=== PATIENT | male | born 1970 | race Caucasian/White ===

== ENCOUNTER → 2017-04-18 | Outpatient (CLI) | payer BC, OTHER ==
[2015-05-16 20:25] VITALS: BP 155/90
--- NOTE | 2017-04-18 08:58 | RAD ---
Right hand radiograph 04/18/2017 at 0815 hours Indication: Right hand injury Comparison: Right hand radiograph 05/16/2015 Technique: 3 views of the right hand are provided. Findings: There is a comminuted, displaced and angulated fracture of the distal fifth metacarpal compatible with a boxer's fracture. There is apex dorsal/ulnar angulation. There is adjacent soft tissue swelling. Bone mineralization is within normal limits. Impression: Comminuted, displaced and attenuated fracture of the distal fifth metacarpal, compatible with a boxer's fracture.
== END | disposition home or self-care (01) ==
LOC: DXRADRC 08:08
PROVIDERS: ATTEND Physician Assistant
DX: S62.306A Unspecified fracture of fifth metacarpal bone, right hand, initial encounter for closed fracture (principal); W22.01XA Walked into wall, initial encounter; Y93.89 Activity, other specified; Y92.89 Other specified places as the place of occurrence of the external cause; Y99.8 Other external cause status
CPT/HCPCS: 73130

== ENCOUNTER 2021-12-02 13:36 | Emergency (ER) | payer BC, OTHER ==
[2015-05-16 20:25] VITALS: BP 155/90
[~2021-12-02] VITALS: Ht 180.3 cm; Wt 94.0 kg
[2021-12-02] MEDS ORDERED: DIPHTH,PERTUSS(ACELL),TET TOX 0.5 ML DISP.SYRIN. VAX IM ONE (14:15)
--- NOTE | 2021-12-02 14:30 | RAD ---
Study: XR HAND_RIGHT 3 VIEWS Indication: Injury of the right index finger. Comparison: 04/18/2017 Findings: No acute fracture seen to involve the index finger or rest of the hand. Congruent articular surfaces. Chronic fifth metacarpal neck deformity. Chronic irregularity at the third metacarpal head. 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 Mild scattered degenerative changes elsewhere. Impression: No acute fracture of the index finger or traumatic malalignment in the setting of reported trauma to this digit. Scattered arthrosis as well as a chronic fifth metacarpal neck deformity. Electronically signed by: GÓMEZ JUNIOR MD (12/02/2021 2:28 PM) [facility]
--- NOTE | 2021-12-02 14:56 | PHYS DOC ---
Past History Past Medical History: Seizure Past Surgical History: No Surgical History Alcohol Use: Occasionally Drug Use: None General Adult EDM: Chief Complaint: FINGER INJURY HPI: HPI: Patient is a 51-year-old male presents with right index finger laceration. Patient states that he smashed his finger in between 2 pieces of machinery. Sensation and range of motion are intact. Bleeding is controlled. Tetanus is not up-to-date. History of seizures. Review of Systems: Review of Systems: ROS At least 10 ROS systems have been reviewed and are negative except as documented in the HPI. General: Negative except as outlined in HPI above. Skin: Negative except as outlined in HPI above. HEENT: Negative except as outlined in HPI above. Neck: Negative except as outlined in HPI above. Respiratory: Negative except as outlined in HPI above.. Cardiovascular: Negative except as outlined in HPI above. Abdomen: Negative except as outlined in HPI above. : Negative except as outlined in HPI above. Back/MSK: Negative except as outlined in HPI above. Neuro: Negative except as outlined in HPI above. Psych: Negative except as outlined in HPI above. Current Medications: Current Meds: Current Medications Medications (Trade) Dose Ordered Sig/Jolynn Start Time Stop Time Status Last Admin Dose Admin Diphtheria/ Tetanus/Acell Pertussis (Boostrix) 0.5 ml ONCE ONCE 12/02/21 14:15 12/02/21 14:16 DC 12/02/21 14:15 0.5 ML Allergies: Allergies: Allergies Coded Allergies Type Severity Reaction Last Updated Verified No Known Drug Allergies 05/16/15 No Physical Exam: PE: Constitutional: Well developed, well nourished, no acute distress, non-toxic ap pearance. [] HENT: bilateral external ears normal, oropharynx moist, no oral exudates, nose normal. [] Eyes: PERRLA, conjunctiva normal, no discharge. [] Neck: Normal range of motion, no tenderness, supple, no stridor. [] Cardiovascular:Heart rate regular rhythm, no murmur [] Lungs & Thorax: Bilateral breath sounds clear to auscultation [] Abdomen: Bowel sounds normal, soft, no tenderness, no masses, no pulsatile masses. [] Skin: 5 cm, laceration, around right, index ear Back: No tenderness, no CVA tenderness. [] Extremities: Right index finger, tenderness,laceration at base of finger, ROM intact, no edema, cap refill less than 2 seconds, Neurologic: Alert and oriented X 3, normal motor function, normal sensory function, no focal deficits noted. [] Psychologic: Affect normal, judgement normal, mood normal. [] Current Patient Data: Vital Signs: Vital Signs Date Time Temp Pulse Resp B/P (MAP) Pulse Ox O2 Delivery O2 Flow Rate FiO2 12/02/21 13:43 98.2 65 18 154/107 (123) 96 Room Air EKG: EKG: [] Radiology/Procedures: Radiology/Procedures: []Study: XR HAND_RIGHT 3 VIEWS Indication: Injury of the right index finger. Comparison: 04/18/2017 Findings: No acute fracture seen to involve the index finger or rest of the hand. Congruent articular surfaces. Chronic fifth metacarpal neck deformity. Chronic irregularity at the third metacarpal head. 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 Mild scattered degenerative changes elsewhere. Impression: No acute fracture of the index finger or traumatic malalignment in the setting of reported trauma to this digit. Scattered arthrosis as well as a chronic fifth metacarpal neck deformity. Electronically signed by: GÓMEZ JUNIOR MD (12/02/2021 2:28 PM) [facility] Heart Score: C/O Chest Pain: No Risk Factors: Risk Factors: DM, Current or recent (<one month) smoker, HTN, HLP, family history of CAD, obesity. Risk Scores: Score 0 - 3: 2.5% MACE over next 6 weeks - Discharge Home Score 4 - 6: 20.3% MACE over next 6 weeks - Admit for Clinical Observation Score 7 - 10: 72.7% MACE over next 6 weeks - Early Invasive Strategies Course & Med Decision Making: Course & Med Decision Making Pertinent Labs and Imaging studies reviewed. (See chart for details) [] 51-year-old male presents with right index finger, laceration. Patient finger was smashed in between 2 pieces of machinery. Sensation and range of motion are intact. Bleeding is controlled. Work-up in ER consist of finger x- ray, tetanus. Dragon Disclaimer: Dragon Disclaimer: This electronic medical record was generated, in whole or in part, using a voice recognition dictation system. 51-year-old male presents with right, index finger laceration. Wound was irrigated. Tetanus was updated. 10 sutures placed and right, index finger. Pa tient tolerated procedure well. Wound was covered with nonadhesive dressing and gauze. Laceration Repair Lac Repair Indication: Right, 5 cm, index finger laceration Procedure: The patient was placed in the appropriate position and anesthesia around the laceration was injected. The area was then irrigated. The lace ration was closed with 50, sutures. The wound area was then dressed with gauze and nonadhesive dressing. Total repaired wound length: 5 cm Other Items: N/A The patient tolerated the procedure well Complications: N/A Departure Departure: Impression: Primary Impression: Laceration Disposition: HOME / SELF CARE / HOMELESS Condition: STABLE Referrals: DUANE BROWNING MD (PCP) Patient Instructions: Laceration Care, Child, [id number] Additional Instructions: EMERGENCY DEPARTMENT GENERAL DISCHARGE INSTRUCTIONS Thank you for coming to [facility] (ED) today and trusting us with you care. We trust that you had a positivie experience in our Emergency Department. If you wish to speak to the department management, you may call the director at [phone]. YOUR FOLLOW UP INSTRUCTIONS ARE FOLLOWS: 1. Do you have a private Doctor? If you do not have a private doctor, please ask for a resource list of physicians or clinics that may be able to assist you with follow up care. 2. The Emergency Physician has interpreted your x-rays. The X-Ray specialist will also review them. If there is a change in the findings, you will be notified in 48 hours when at all possible. 3. A lab test or culture has been done, your results will be reviewed and you will be notified if you need a change in treatment. ADDITIONAL INSTRUCTIONS AND INFORMATION: 1. Your care today has been supervised by a physician who is specially trained in emergency care. Many problems require more than one evaluation for a complete diagnosis and treatment. We recommend that you schedule your follow up appointment as recommended to ensure complete treatment of you illness or injury. If you are unable to obtain follow up care and continue to have a problem, or if your condition worsens, we recommend that you return to the ED. 2. We are not able to safely determine your condition over the phone nor are we able to give sound medical advice over the phone. For these safety reasons, if you call for medical advice we will ask you to come to the ED for further evaluation. 3. If you have any questions regarding these discharge instructions please call the ED at [phone]. SAFETY INFORMATION: In the interest of safety, wellness, and injury prevention; we encourage you to wear your sealbelt, if you smoke; quite smoking, and we encourage family to use a protective helmet for bicycling and other sporting events that present an increased risk for head injury. IF YOUR SYMPTOMS WORSEN OR NEW SYMPTOMS DEVELOP, OR YOU HAVE CONCERNS ABOUT YOUR CONDITION; OR IF YOUR CONDITION WORSENS WHILE YOU ARE WAITING FOR YOUR FOLLOW UP APPOINTMENT; EITHER CONTACT YOUR PRIMARY CARE DOCTOR, THE PHYSICIAN WHOSE NAME AND NUMBER YOU WERE GIVEN, OR RETURN TO THE ED IMMEDIATELY. Scripts Cephalexin (CEPHALEXIN) 500 Mg Tablet 1 TAB PO BID for laceration for 5 Days, #10 TAB Prov: YNES REESE APRN 12/02/21 YNES REESE APRN Dec 02, 2021 14:56
[2021-12-02] MEDS ORDERED: HYDROcodone/APAP 5/325MG 1 TAB TABLET PO ONE (15:00)
[2021-12-02] MEDS ORDERED: LIDOCAINE 2% 20 ML VIAL. IJ ONE (15:00)
[2021-12-02] MEDS ORDERED: CEPH500T PO (16:19)
== END 2021-12-02 16:37 | disposition home or self-care (01) ==
LOC: ER 13:36
DX: S61.210A Laceration without foreign body of right index finger without damage to nail, initial encounter (principal); W31.9XXA Contact with unspecified machinery, initial encounter; Y93.89 Activity, other specified; Y92.89 Other specified places as the place of occurrence of the external cause; Y99.8 Other external cause status
CPT/HCPCS: 12002; 73130; 90471; 90715; 99283; J2001